=== PATIENT | male | born 1975 | race Caucasian/White ===

== ENCOUNTER 2025-04-09 10:30 | Outpatient (CLI) | payer BC, SELFPAY ==
--- NOTE | 2025-04-09 10:33 | CT_ITS ---
APPROVED REPORT [employer] Supervisor: CLINICAL INDICATION Chest Pain TECHNIQUE Image Acquisition: A 128 slice MDCT scanner ([employer]) was used for data acquisition. A noncontrast coronary calcium scan was performed. A CT attenuation threshold of 130 Hounsfield units (HU) was used for the detection of calcium in contiguous voxels of 1 sq mm in area to be counted as individual lesions. Bolus tracking in the ascending aorta with a threshold of 180 HU was performed. Immediately afterwards, ECG synchronized cardiac CT was then performed from the cardiac base to apex using retrospective gating with ECG tube current modulation. A total of 85 mL of Isovue 370 mg/mL contrast medium was administered at 5 mL/sec followed by a saline flush using a biphasic injection protocol. A tube voltage of 120 KVp was used. The average heart rate at the time of acquisition was 62 bpm and regular. Image Reconstruction Transaxial images were reconstructed at 0.67 mm slide thickness. Data was reviewed interactively on an advanced workstation capable of 2 and 3-dimensional displays in all conventional reconstruction formats, including multiplanar reformations, maximum intensity projections, curved multiplanar reformations, and volume rendered reconstructions. When applicable, selected routine images describing the relevant coronary anatomy and pathology were saved and sent to PACS. Complications None Technical Quality Overall image quality was good. Coronary artery opacification was adequate. Total DLP (Dose-Length Product) is 1578.1 mGy-cm. The reported value represents the total of one or more individual components during the CT acquisition of this date and at this time, and as such, the same value may appear in more than one CT report depending on the interpreting/reporting physicians. COMPARISON None FINDINGS CT Coronary Calcium Scoring LMA (Left Main Artery) = 0 LAD (Left Anterior Descending) = 0 LCX (Left Coronary Circumflex) = 0 RCA (Right Coronary Artery) = 0 Total Calcium Score = 0 using the AJ-130 method. The interpretation of the calcium heart score is based on the following continuum*: 0 = no calcified plaque detected (risk of coronary artery disease is very low ??? less than 5%) 1-10 = calcium detected in extremely minimal levels (risk of coronary diseases is still low ??? less than 10%) 11-100 = mild levels of plaque detected with certainty (mild or minimal narrowing of heart arteries is likely) 101-400 = definite,at least moderate levels of plaque detected (relatively high risk of a heart attack within 3-5 years) >401-999 = extensive levels of plaque detected (high risk of heart attack, high levels of vascular disease are present, high likelihood of at least one significant coronary narrowing) *The calcium heart score quantifies the burden of coronary calcification/plaque in the coronary arteries. The calcium heart score is not able to evaluate the presence or burden of non-calcified (i.e. soft) plaque. There is no identifiable calcification in the aortic valve, mitral annulus or mitral valve, pericardium, or myocardium. Coronary CT Angiography The coronary arterial system is right dominant. Quantitative Stenosis Grading: Left Main (LM): The left main originates normally from the left sinus of Valsalva. The LM bifurcates into the left anterior descending artery and left circumflex artery. The LM is patent with no evidence of atherosclerosis. Left Anterior Descending (LAD) and Diagonal Branches: The LAD gives off 3 diagonal branch(es). The LAD and its branches are patent with no evidence of atherosclerosis. There is no evidence of LAD-myocardial bridge. Left Circumflex (LCX) and Obtuse Marginals (OM): The LCX gives off 1 Obtuse Marginal (OM) branch(es). The LCX and its branches are patent with no evidence of atherosclerosis. Right Coronary Artery (RCA): The RCA originates normally from the right sinus of Valsalva. The RCA gives off a posterior descending artery (PDA) and posterolateral (PL) branches. The RCA and its branches are patent with no evidence of atherosclerosis. Non-Coronary Cardiac Findings: Analysis of the left ventricular (LV) structure and function was performed after 3-D reconstruction of the LV from axial images, with user-corrected automatic contouring for assessment of LV volumes and user-defined reconstruction from oblique planes for measurement of 3-D cardiac structure and function. -The left ventricle systolic function is normal. -There is incomplete opacification of the distal left atrial appendage. This likely represents artifact due early imaging acquisition, but this study cannot rule out filling defect in the distal BLANCA. Two right pulmonary veins and two left pulmonary veins drain normally into the left atrium. -No pericardial thickening or calcification. -Central and branch pulmonary arteries in the [id number] are unremarkable. -Thoracic aorta within the visualized thoracic aortic-branches in the [id number] is unremarkable. Extracardiac Structures No significant extra-cardiac findings. Note, however, that this study is focused on the cardiac findings. IMPRESSION -Absence of coronary calcification with an Agatston score = 0 using the AJ-130 method. -No evidence of significant flow-limiting atherosclerosis of the coronary arteries. -No evidence of coronary anomalies or myocardial bridges. -CAD-RADS 0. Management recommendations per ACC/AHA guidelines*, as clinically appropriate. *Recommendations: CAD RADS 0: Reassurance. Consider non-atherosclerotic causes of chest pain. CAD RADS 1: Consider non-atherosclerotic causes of chest pain. Consider preventive therapy and risk factor modification. CAD RADS 2: Consider non-atherosclerotic causes of chest pain. Consider preventive therapy and risk factor modification, particularly for patients with nonobstructive plaque in multiple segments. CAD RADS 3: Consider further functional testing. Consider symptom-guided anti-ischemic and preventive pharmacotherapy as well as risk factor modification per published guideline statements. CAD RADS 4A: Consider further functional testing or invasive coronary angiography with revascularization per published guideline statements. Consider symptom-guided anti-ischemic and preventive pharmacotherapy as well as risk factor modification per published guideline statements. CAD RADS 4B: Invasive coronary angiography recommended with revascularization per published guideline statements. Consider symptom-guided anti-ischemic and preventive pharmacotherapy as well as risk factor modification per published guideline statements. CAD RADS 5: Consider invasive angiography and/or viability assessment with revascularization per published guideline statements. Consider symptom-guided anti-ischemic and preventive pharmacotherapy as well as risk factor modification per published guideline statements. CRITICAL RESULT None COMMUNICATION Per this written report The coronary and cardiac findings of this CCTA were reviewed, reported, and signed by Talib Feldman MD (Social Media Designer) Conclusion Electronically signed by : Irma Feldman MD 04/09/2025 13:49:30
--- OUTSIDE RECORDS SUMMARY | 2025-04-09 10:33 | XMS_ITS | Data Portability ---
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 Alternate ice/heat Patient advised to rest initially and then slowly increase activity level. Monitor changes in symptoms such as numbness, tingling or weakness in legs, changes in bowel or bladder habits or worsening back pain. Proper ergonomics discussed. Patient instructed to follow up with worsening symptoms or concerns Patient was advised on risk and benefits of the use of oral steriods. Patient is wanting steriods to help with symptoms at this time. Patient was advised that if symptoms worsen at all to seek care [email or web address] Not available 01/24/2024 09:30:06 10/07/2024 10/07/2024 New patient who presents to establish care. Prior to this he has had limited interaction with the healthcare system. He has currently not on any medication. [email or web address] Not available 10/07/2024 14:33:46 Plan of Treatment Reminders Order Date Submit Date Provider Last Modified By Organization Details Last Modified Time Details Appointments OV EST 15 2024 09:45A Leonle Mendoza MD Not available Not available Not available Lab TSH, serum or plasma 2023 024 [facility] (Laboratory), [address] , [place], [address], 10/07/2024 17:34:20 lipid panel, serum 2023 [facility] (Laboratory), [address] , [place], [address], 10/07/2024 17:34:24 CMP, serum or plasma 2023 [facility] (Laboratory), [address] , [place], [address], 10/07/2024 17:34:22 CBC w/ auto diff 2023 [facility] (Laboratory), [address] , [place], [address], 10/07/2024 17:18:11 noninvasi ve colorecta l cancer DNA + occult blood screening , QL, stool 2023 [email or web address] [facility] (Cologuard Orders Only), [address], [address], [place], [address], 11/04/2024 08:32:17 hemoglobi n A1c + average glucose, QN, blood [email or web address] (Laboratory), [address] [place], [address], 10/14/2024 08:20:42 urinalysi s, dipstick 2023 [email or web address] [facility], [address] [facility], [address], [place], [address], 01/24/2024 09:29:43 Referral cardiolog ist referral 2023 024 philip Mendoza MD, [address] , [address], [place], [address], 11/04/2024 08:31:58 Procedures None recorded. Surgeries None recorded. Imaging XR, chest, 2 view 2023 [facility] (Scheduling), [address] , [place], [address], 10/07/2024 19:14:26 Medication Orders cyclobenz aprine 5 mg tablet 2023 [id number], [address] [place] [address], [id number], 10/07/2024 14:11:54 ketorolac 60 mg/2 mL intramusc ular solution 2023 [email or web address] Not available 10/07/2024 14:11:43 Celestone Soluspan 6 mg/mL suspensio n for injection 2023 [email or web address] Not available 10/07/2024 14:11:37 prednison e 10 mg tablets in a dose pack 2023 [facility] #[id number], [address], [place], [place], [id number], 10/07/2024 14:11:56 Patient TargetsNo targets recorded. Patient InstructionsNo instructions recorded. 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 Referring Physician: Osvaldo Pace, Family Medicine, Encounter Date: 10/07/2024 Results Created Date Observation Date Name Description Value Unit Range Abnormal Flag Note LastModifiedBy Organization Detail LastModifiedTime 01/24/2001/24/2024 urina lysis , dipst ick Leukocytes (reference range) negati ve Not Available [facility] [address], [place], [address], 01/24/2024 09:18:04 01/24/20 24 01/24/2024 urina lysis , dipst ick Nitrite (reference range:) negati ve Not Available [facility] [address], [place], [address], 01/24/2024 09:18:04 01/24/20 24 01/24/2024 urina lysis , dipst ick Urobilinogen (reference range) 4 Not Available [facility] [address], [place], [address], 01/24/2024 09:18:04 01/24/20 24 01/24/2024 urina lysis , dipst ick Protein (reference range) negati ve Not Available [facility] [address], [place], [address], 01/24/2024 09:18:04 01/24/20 24 01/24/2024 urina lysis , dipst ick pH (reference range 5-8.5) 6.0 Not Available [facility] [address], [place], [address], 01/24/2024 09:18:04 01/24/20 24 01/24/2024 urina lysis , dipst ick Blood (reference range:) negati ve Not Available [facility] [address], [place], [address], 01/24/2024 09:18:04 01/24/20 24 01/24/2024 urina lysis , dipst ick Specific Jensen (reference range) 1.025 Not Available [facility] [address] [facility] [address], [place], [address], 01/24/2024 09:18:04 01/24/20 24 01/24/2024 urina lysis , dipst ick Ketone (reference range) negati ve Not Available [facility] [address], [place], [address], 01/24/2024 09:18:04 01/24/20 24 01/24/2024 urina lysis , dipst ick Bilirubin (reference range) negati ve Not Available [facility] [address] [facility] [address], [place], [address], 01/24/2024 09:18:04 01/24/20 24 01/24/2024 urina lysis , dipst ick Glucose (reference range) negati ve Not Available [facility] [address] [facility] [address], [place], [address], 01/24/2024 09:18:04 10/07/20 24 10/07/2024 HEMOG LOBIN A1C glycosylated hemoglobin A1C 5.6 % 4.5-6. 2 Not Available [facility] (Lab Registration) [address], [place], [address], 10/07/2024 17:16:08 10/07/20 24 10/07/2024 HEMOG LOBIN A1C estimated average glucose 114 mg/dL 82-131 Not Available [facility] (Lab Registration) [address] , [place], [address], 10/07/2024 17:16:08 10/07/20 24 10/07/2024 HEMOG LOBIN A1C note Unles s other tucker noted testi ng perfo rmed at: [facility] [address] [place] [address] [phone] Robin eng MD CLIA: [id number] Not Available [facility] (Lab Registration) [address] [place], [address], 10/07/2024 17:16:08 10/07/20 24 10/07/2024 CBC AUTO W DIFF WBC 7.1 10 4.5-11 .5 Not Available [facility] (Lab Registration) [address] [place], [address], 10/07/2024 17:18:11 10/07/20 24 10/07/2024 CBC AUTO W DIFF RBC 5.41 10 4.25-5 .57 Not Available [facility] (Lab Registration) [address] [place], [address], 10/07/2024 17:18:11 10/07/20 24 10/07/2024 CBC AUTO W DIFF HGB 16.2 g/dL 13.5-1 7.2 Not Available [facility] (Lab Registration) [address] [place], [address], 10/07/2024 17:18:11 10/07/20 24 10/07/2024 CBC AUTO W DIFF HCT 47.4 % 42.0-5 2.0 Not Available [facility] (Lab Registration) [address] [place], [address], 10/07/2024 17:18:11 10/07/20 24 10/07/2024 CBC AUTO W DIFF MCV 87.6 fL 80-95 Not Available [facility] (Lab Registration) [address] [place], [address], 10/07/2024 17:18:11 10/07/20 24 10/07/2024 CBC AUTO W DIFF MCH 29.9 pg 27.0-3 4.0 Not Available [facility] (Lab Registration) [address] [place], [address], 10/07/2024 17:18:11 10/07/20 24 10/07/2024 CBC AUTO W DIFF MCHC 34.2 g/dL 32.0-3 6.0 Not Available [facility] (Lab Registration) [address] [place], [address], 10/07/2024 17:18:11 10/07/20 24 10/07/2024 CBC AUTO W DIFF platelet count 236 10 150-45 0 Not Available [facility] (Lab Registration) [address] [place], [address], 10/07/2024 17:18:11 10/07/20 24 10/07/2024 CBC AUTO W DIFF RDW 12.7 % 12.3-1 5.1 Not Available [facility] (Lab Registration) [address] [place], [address], 10/07/2024 17:18:11 10/07/20 24 10/07/2024 CBC AUTO W DIFF MPV 10.0 fL 7.4-10 .4 Not Available [facility] (Lab Registration) [address], [place], [address], 10/07/2024 17:18:11 10/07/20 24 10/07/2024 CBC AUTO W DIFF granulocyte% 70.1 % 40-75 Not Available [facility] (Lab Registration) [address] [place], [address], 10/07/2024 17:18:11 10/07/20 24 10/07/2024 CBC AUTO W DIFF lymphocyte% 15.2 % 15-57 Not Available [facility] (Lab Registration) [address] [place], [address], 10/07/2024 17:18:11 10/07/20 24 10/07/2024 CBC AUTO W DIFF monocyte% 13.8 % 4.0-12 .0 high Not Available [facility] (Lab Registration) [address] [place], [address], 10/07/2024 17:18:11 10/07/20 24 10/07/2024 CBC AUTO W DIFF eosinophil% 0.4 % 0.0-4. 0 Not Available [facility] (Lab Registration) [address] [place], [address], 10/07/2024 17:18:11 10/07/20 24 10/07/2024 CBC AUTO W DIFF basophil% 0.4 % 0.0-1. 0 Not Available [facility] (Lab Registration) [address] [place], [address], 10/07/2024 17:18:11 10/07/20 24 10/07/2024 CBC AUTO W DIFF immature granulocytes % 0.1 % 0.0-0. 8 Not Available [facility] (Lab Registration) [address] [place], [address], 10/07/2024 17:18:11 10/07/20 24 10/07/2024 CBC AUTO W DIFF granulocyte# 4.96 10 Not Available [facility] (Lab Registration) [address] [place], [address], 10/07/2024 17:18:11 10/07/20 24 10/07/2024 CBC AUTO W DIFF lymphocyte# 1.08 10 Not Available [facility] (Lab Registration) [address] [place], [address], 10/07/2024 17:18:11 10/07/20 24 10/07/2024 CBC AUTO W DIFF monocyte# 0.98 10 Not Available [facility] (Lab Registration) [address] [place], [address], 10/07/2024 17:18:11 10/07/20 24 10/07/2024 CBC AUTO W DIFF eosinophil# 0.03 10 Not Available [facility] (Lab Registration) [address] [place], [address], 10/07/2024 17:18:11 10/07/20 24 10/07/2024 CBC AUTO W DIFF basophil# 0.03 10 Not Available [facility] (Lab Registration) [address] [place], [address], 10/07/2024 17:18:11 10/07/20 24 10/07/2024 CBC AUTO W DIFF immature granulocytes # 0.01 10 Not Available [facility] (Lab Registration) [address] [place], [address], 10/07/2024 17:18:11 10/07/20 24 10/07/2024 CBC AUTO W DIFF manual differential NO Not Available [facility] (Lab Registration) [address] [place], [address], 10/07/2024 17:18:11 10/07/20 24 10/07/2024 CBC AUTO W DIFF note Unles s other tucker noted testi ng perfo rmed at: [facility] [address] [place] [address] [phone] Robin eng MD CLIA: [id number] Not Available [facility] (Lab Registration) [address] [place], [address], 10/07/2024 17:18:11 10/07/20 24 10/07/2024 THYRO ID STIMU LATIN G HORMO NE thyroid stimulating hormone 1.02 mIU/m L 0.34-4 .80 Not Available [facility] (Lab Registration) [address] [place], [address], 10/07/2024 17:34:20 10/07/20 24 10/07/2024 THYRO ID STIMU LATIN G HORMO NE note Unles s other tucker noted testi ng perfo rmed at: [facility] [address] [place] [address] [phone] Robin eng MD CLIA: [id number] Not Available [facility] (Lab Registration) [address] [place], [address], 10/07/2024 17:34:20 10/07/20 24 10/07/2024 COMP METAB OLIC PANEL sodium 141 mmol/ L 136-14 5 Not Available [facility] (Lab Registration) [address] [place], [address], 10/07/2024 17:34:22 10/07/20 24 10/07/2024 COMP METAB OLIC PANEL potassium 4.6 mmol/ L 3.5-5. 1 Not Available [facility] (Lab Registration) [address] [place], [address], 10/07/2024 17:34:22 10/07/20 24 10/07/2024 COMP METAB OLIC PANEL chloride 102 mmol/ L 98-107 Not Available [facility] (Lab Registration) [address] [place], [address], 10/07/2024 17:34:22 10/07/20 24 10/07/2024 COMP METAB OLIC PANEL carbon dioxide 32 mmol/ L 21-32 Not Available [facility] (Lab Registration) [address], [place], [address], 10/07/2024 17:34:22 10/07/20 24 10/07/2024 COMP METAB OLIC PANEL anion gap 7.0 Not Available [facility] (Lab Registration) [address] [place], [address], 10/07/2024 17:34:22 10/07/20 24 10/07/2024 COMP METAB OLIC PANEL glucose 78 mg/dL 70-110 Not Available [facility] (Lab Registration) [address] [place], [address], 10/07/2024 17:34:22 10/07/20 24 10/07/2024 COMP METAB OLIC PANEL blood urea nitrogen 9 mg/dL 7-18 Not Available [facility] (Lab Registration) [address] [place], [address], 10/07/2024 17:34:22 10/07/20 24 10/07/2024 COMP METAB OLIC PANEL creatinine 1.2 mg/dL 0.8-1. 3 Not Available [facility] (Lab Registration) [address] [place], [address], 10/07/2024 17:34:22 10/07/20 24 10/07/2024 COMP METAB OLIC PANEL BUN/creatini ne ratio 7.5 9-21 low Not Available [facility] (Lab Registration) [address] [place], [address], 10/07/2024 17:34:22 10/07/20 24 10/07/2024 COMP METAB OLIC PANEL estimated glom filtration rate 75 mL/mi n >60- GFR LIMIT ATION : The eGFR equat ion CKD-E PI 2020 is not appli cable for pedia tric patie nts or great er than 90 years of age. The follo wing condi tions may alter the GFR resul t: extre mes in body size, malnu triti on or obesi ty, skele indy muscl e disea se, parap legia or quadr ipleg ia, veget tracy diet or rapid ly echeverria ing kiney funct ion. Not Available [facility] (Lab Registration) [address], [place], [address], 10/07/2024 17:34:22 10/07/20 24 10/07/2024 COMP METAB OLIC PANEL total protein 6.9 g/dL 6.4-8. 2 Not Available [facility] (Lab Registration) [address] [place], [address], 10/07/2024 17:34:22 10/07/20 24 10/07/2024 COMP METAB OLIC PANEL albumin 3.8 g/dL 3.4-5. 0 Not Available [facility] (Lab Registration) [address], [place], [address], 10/07/2024 17:34:22 10/07/20 24 10/07/2024 COMP METAB OLIC PANEL calcium 9.6 mg/dL 8.5-10 .1 Not Available [facility] (Lab Registration) [address] [place], [address], 10/07/2024 17:34:22 10/07/20 24 10/07/2024 COMP METAB OLIC PANEL corrected calcium 9.8 mg/dL 8.5-10 .1 Not Available [facility] (Lab Registration) [address] [place], [address], 10/07/2024 17:34:22 10/07/20 24 10/07/2024 COMP METAB OLIC PANEL bilirubin total 0.5 mg/dL 0.4-1. 5 Not Available [facility] (Lab Registration) [address] [place], [address], 10/07/2024 17:34:22 10/07/20 24 10/07/2024 COMP METAB OLIC PANEL AST (SGOT) 15 U/L 15-37 Not Available [facility] (Lab Registration) [address] [place], [address], 10/07/2024 17:34:22 10/07/20 24 10/07/2024 COMP METAB OLIC PANEL ALT (SGPT) 37 U/L 12-78 Not Available [facility] (Lab Registration) [address] [place], [address], 10/07/2024 17:34:22 10/07/20 24 10/07/2024 COMP METAB OLIC PANEL alk phosphatase 106 U/L 50-170 Not Available [facility] (Lab Registration) [address] [place], [address], 10/07/2024 17:34:22 10/07/20 24 10/07/2024 COMP METAB OLIC PANEL note Unles s other tucker noted testi ng perfo rmed at: [facility] [address] [place] [address] [phone] Robin eng MD CLIA: [id number] Not Available [facility] (Lab Registration) [address], [place], [address], 10/07/2024 17:34:22 10/07/20 24 10/07/2024 LIPID PANEL triglyceride 164 mg/dL 20-200 The Natio nal Stephanie stero l Educa tion Progr am (NCEP ) has set the follo wing guide lines for Fasti ng Trigl yceri stephanie: MAURICIO L: <150 mg/dL BORDE RLINE HIGH: 150 - 199 mg/dL HIGH: 200 - 499 mg/dL VERY HIGH: > or =500 mg/dL Not Available [facility] (Lab Registration) [address] [place], [address], 10/07/2024 17:34:24 10/07/20 24 10/07/2024 LIPID PANEL cholesterol 249 mg/dL 0-200 high The Natio nal Stephanie stero l Educa tion Progr am ([facility] ) has set the follo wing guide lines for Fasti ng Stephanie stero l: LEWIS ABLE: <200 mg/dL BORDE RLINE HIGH: 200 - 239 mg/dL HIGH: > or =240 mg/dL Not Available [facility] (Lab Registration) [address], [place], [address], 10/07/2024 17:34:24 10/07/20 24 10/07/2024 LIPID PANEL HDL cholesterol 50 mg/dL 60- low The Natio nal Stephanie stero l Educa tion Progr am (RIEP ) has set the follo wing guide lines for Fasti ng HDL Stephanie stero l: LOW HDL: <40 mg/dL MAURICIO L: 40 - 60 mg/dL LEWIS ABLE: >60 mg/dL Not Available [facility] (Lab Registration) [address], [place], [address], 10/07/2024 17:34:24 10/07/20 24 10/07/2024 LIPID PANEL LDL calculated 166 mg/dL 100- The Natio nal Stephanie stero l Educa tion Progr am ([facility] ) has set the follo wing guide lines for Fasti ng LDL Stephanie stero l: OPTIM AL: < 100 mg/dL LOW RISK: 100 - 129 mg/dL BORDE RLINE HIGH: 130 - 159 mg/dL HIGH: 160 - 189 mg/dL VERY HIGH: > or = 190 mg/dL Not Available [facility] (Lab Registration) [address] [place], [address], 10/07/2024 17:34:24 10/07/20 24 10/07/2024 LIPID PANEL chol/HDL ratio 5 -5 Not Available [facility] (Lab Registration) [address] [place], [address], 10/07/2024 17:34:24 10/07/20 24 10/07/2024 LIPID PANEL note Unles s other tucker noted testi ng perfo rmed at: [facility] [address] [place] [address] [phone] Robin eng MD CLIA: [id number] Not Available [facility] (Lab Registration) [address] [place], [address], 10/07/2024 17:34:24 10/07/20 24 10/07/2024 XR, chest , 2 view [facility] [address] [facility] [place] [address] Phone: Fax: Name: UGO VELA Exam Date: 2023 : 1974 Age 49 years Gender : M Access ion: [id number] Physic francheska: VIR[place]IA PACE NDE Facili ty: [facility] Facili ty HSV: Outpat ient Exam: CHEST PA ^ LAT Chest X Ray: 2 Views includ ing PA and latera l chest CLINIC AL INDICA TION: Male, 49 years old. cough COMPAR DEMETRIS: None. Findin gs: Trache a and medias tinum are midlin e. Cardia c silhou ette is within normal limits . There is no focal lung consol idatio n or effusi on. Impres dasia: Lungs are clear. Electr onical ly signed by: Luis Sheriff MD 2023 07:09 PM EST RP Workst ation: [id number] Dictat ed By: LUIS SHERIFF Transc ribed By: Transc ribed On: 2023 3:21 PM Electr onical ly signed by: LUIS SHERIFF Y 2023 Thank you for referr ing MIRIAN UGO to [facility]. Legall y authen ticate d by SHEILA Javier MD 2023-10 15:21: 46 CC'ed Logic: Orderi ng Provid er: KATELYNN COLEMAN NDE CC Provid er: KATELYNN WILHELM Attend ing Provid er: KATELYNN WILHELM Referr ing Provid er: KATELYNN WILHELM Admitt ing Provid er: KATELYNN WILHELM [facility] (Radiology) [address] [place] [address] [place], [address], 10/08/2024 08:24:46 04/02/20 25 03/29/2025 XR, chest No observ ation record ed. [email or web address] Not Available 2024 09:30:15 04/05/20 25 03/29/2025 elect rocar diogr am No observ ation record ed. [email or web address] Not Available 2024 09:53:49 04/05/20 25 04/06/2025 elect rocar diogr am No observ ation record ed. [address], [place], [address], 04/06/2025 08:08:31 04/06/20 25 04/06/2025 elect rocar diogr am No observ ation record ed. [address], [place], [address], 04/06/2025 08:08:21 Result Notes Documentation Provider Name and Address Organization Details Recorded Time Xr, Chest, 2 View : [address] [place] [address] Name: UGO VELA Exam Date: 10/07/2024 : 1975 Age 49 years Gender: M Physician: OSVALDO PACE Facility: [facility] Facility HSV: Outpatient Exam: CHEST PA ^ LAT Chest X Ray: 2 Views including PA and lateral chest CLINICAL INDICATION: Male, 49 years old. cough COMPARISON: None. Findings: Trachea and mediastinum are midline. Cardiac silhouette is within normal limits. There is no focal lung consolidation or effusion. Impression: Lungs are clear. Electronically signed by: Morena Sheriff MD 10/07/2024 07:09 PM [facility] Dictated By: MORENA SHERIFF Transcribed By: Transcribed On: 10/07/2024 3:21 PM Electronically signed by: MORENA SHERIFF 10/07/2024 Thank you for referring UGO VELA to [facility]. Legally authenticated by SHEILA BERG MD 2024-10-07 15:21:44 CC'ed Logic: Ordering Provider: KATELYNN ZIMMERMAN CC Provider: KATELYNN ZIMMERMAN Attending Provider: KATELYNN ZIMMERMAN Referring Provider: KATELYNN ZIMMERMAN Admitting Provider: KATELYNN ZIMMERMAN Not Available [facility] 10/08/2024 08:24:46 Problems No Known Problems Medical Equipment None Reported. Allergies No known drug allergies Medications Name Sig Start Date Stop Date Status Note LastModified by Organization Details LastModified Time Celestone Soluspan 6 mg/mL suspension for injection Take 9 mg by injection route. 10/07 completed Not Available Not Available Not Available prednisone 10 mg tablets in a dose pack FOLLOW PACKAGE DIRECTION S 10/07 completed Not Available Not Available Not Available metoprolol tartrate 50 mg tablet Take 1 tablet twice a day by oral route. 2024 active Not Available Not Available Not Avai lable nitroglycer in 0.[address] 1 tablet by sublingua l route. 2024 active Not Available Not Available Not Avai lable ketorolac 60 mg/2 mL intramuscul ar solution Inject 1 mL every 6 hours by intramusc ular route. 10/07 completed Not Available Not Available Not Available cyclobenzap rine 5 mg tablet TAKE 1 TABLET BY MOUTH THREE TIMES DAILY FOR 4 DAYS NEEDED 10/07 completed Not Available Not Available Not Available Vitals Date Recorded Body weight Body temperature Heart rate Systolic blood pressure Diastolic blood pressure Provider Name and Address Organization Details Last Updated DateTime 01/24/2024 13080.6 6 g 97.8 [degF] 68 /min 138 mm[Hg] 86 mm[Hg] L[facility] [place] [facility] [place] [facility] [place] 09:10:30 Date Recorded Body height Body mass index (BMI) Body weight Oxygen saturation Oxygen saturation in Arterial blood by Pulse oximetry Heart rate Systolic blood pressure Diastolic blood pressure Provider Name and Address Organization Details Last Updated DateTime 5 175.26 cm 29.3 kg/m2 84614.0 9 g 97 % 97 % 85 /min 129 mm[Hg] 88 mm[Hg] Angely Abreu [facility] [place] 5 10:03:38 Date Recorded Body height Body mass index (BMI) Body weight Body temperature Oxygen saturation Oxygen saturation in Arterial blood by Pulse oximetry Heart rate Respiratory rate Systolic blood pressure Diastolic blood pressure Provider Name and Address Organization Details Last Updated DateTime 4 175.26 cm 30.4 kg/m2 67519.0 3 g 98.4 [degF] 97 % 97 % 93 /min 16 /min 142 mm[Hg] 92 mm[Hg] Liana Sun [facility] [place] 4 14:11:24 Social History Question Answer Notes LastModified by Organizat ion Details LastModified Time Tobacco Smoking Status Current Every Day Smoker Liana Sun [facility] [place] 10/07/2024 14:13:18 Do You Have An Advance Directive? No Information n ot available 10/07/2024 Are You Blind Or Do You Have Difficulty Seeing? No Information n ot available 10/07/2024 What Is Your Level Of Caffeine Consumption? Moderate Information not available 10/07/2024 In The 14 Days Before Symptom Onset, Have You Had Close Contact With A Laboratory-confirm ed COVID-19 While That Case Was Ill? No Information n ot available 10/07/2024 In The 14 Days Before Symptom Onset, Have You Had Close Contact With A Person Who Is Under Investigation For COVID-19 While That Person Was Ill? No Information not available 10/07/2024 Have You Been To An Area Known To Be High Risk For COVID-19? No Information not available 10/07/2024 Are You Deaf Or Do You Have Serious Difficulty Hearing? No Information not available 10/07/2024 What Type Of Diet Are You Following? REGULAR Information n ot available 10/07/2024 Have You Processed Blood Or Body Fluids From An Ebola Virus Disease Patient Without Appropriate PPE? No Information not available 10/07/2024 Do You Reside In Or Have You Traveled To An Area Where Ebola Virus Transmission Is Active? No Information not available 10/07/2024 Have There Been Any Changes To Your Family Or Social Situation? No Information no t available 10/07/2024 What Is The Fluoride Status Of Your Home? Unknown Information not available 10/07/2024 Are There Any Guns Present In Your Home? No Information not available 10/07/2024 Have You Recently Or Are You Planning To Travel To An Area With Zika Virus? No Information not available 10/07/2024 Do You Use Insect Repellent Routinely? Yes Information not available 10/07/2024 Do You Feel Safe At Home? Yes Information not available 10/07/2024 Do You Have A Medical Power Of [place] Gazer? No Information not available 10/07/2024 What Is Your Current Pack Years? 30ormorepacky ears Information not available 10/07/2024 Do You Have Any Pets? Yes Information not available 10/07/2024 What Is Your Relationship Status? Information not available 10/07/2024 Do You Use Your Seat Belt Or Car Seat Routinely? Yes Information not available 10/07/2024 Do You Have Smoke And Carbon Monoxide Detectors In Your Home? Yes Information not available 10/07/2024 Are You Passively Exposed To Smoke? Yes Information no t available 10/07/2024 How Much Tobacco Do You Smoke? 1 PPD Information not available 10/07/2024 Do You Use Sunscreen Routinely? Yes Information not available 10/07/2024 Do You Have Difficulty Walking Or Climbing Stairs? No Information not available 10/07/2024 Are You Currently In School? No Information not available 10/07/2024 Sex: Unknown Functional Status Question Answer Note LastModified by Organizat ion Details LastModified Time Do you use any illicit or recreational drugs? No Information not available 10/07/2024 Do you or have you ever used any other forms of tobacco or nicotine? No Information not available 10/07/2024 What is your level of alcohol consumption? Moderate admits to drinking 1-2 beers daily Information not available 10/07/2024 Are you currently employed? Yes Information not available 10/07/2024 Do you have transportation difficulties? No Information not available 10/07/2024 Are you able to walk? YESWOREST Information not available 10/07/2024 Do you have difficulty doing errands alone? No Information not available 10/07/2024 Are you able to care for yourself? Yes Information n ot available 10/07/2024 Do you have difficulty dressing or bathing? No Information not available 10/07/2024 What is your exercise level? Moderate Information not available 10/07/2024 Mental Status Question Answer Note LastModified by Organizat ion Details LastModified Time Do you feel stressed (tense, restless, nervous, or anxious, or unable to sleep at night)? [id number] Information not available 10/07/2024 Do you have difficulty concentrating, remembering or making decisions? No Information no t available 10/07/2024 Family History Relationship Description Onset Age of this Age Resolved Age Notes LastModified by Organization Details LastModified Time Mother Chronic obstructive pulmonary disease [email or web address] Not available 2023 15:40:04 Father Myocardial infarction [email or web address] Not available 10/07 14:12:29 Paternal Grandfather Myocardial infarction tpardini Not available 10/07 14:12:29 Medical History No medical history recorded. Immunizations Vaccine Type Date Status Note Provider Nam e and Address Organization Details Recorded Time COVID-19, mRNA, LNP-S, PF, 100 mcg/0.5mL dose or 50 mcg/0.25mL dose 1 completed JOSEPH Love [facility] & [place] 09/04/2024 15:39:07 COVID-19, mRNA, LNP-S, PF, 100 mcg/0.5mL dose or 50 mcg/0.25mL dose 1 completed JOSEPH Love [facility] & [place] 09/04/2024 15:39:07 Tdap 1 completed Sanna ernst, JOSEPH - [facility] - [place] & [place] 09/04/2024 15:39:07 Td (adult), 2 Lf tetanus toxoid, preservative free, adsorbed 6 completed JOSEPH Love - [facility] - [place] & [place] 09/04/2024 15:39:07 Past Encounters Encounter ID Performer Location Encounter Start Date Encounter Closed Date Diagnosis/Indication Diagnosis SNOMED-CT Code Diagnosis ICD10 Code Diagnosis Note [id number] Kaz Light MD [address],[facility] [address] [place] [address] 01/24/2024 09:00:16 01/24/2024 09:57:53 Low back pain 962529344 M54.50 Spasm of back muscles 20 5397440 M62.321 [id number] Osvaldo Pace MD [facility] [address] [facility] [place] [id number] 10/07/2024 13:21:55 10/07/2024 14:35:27 Screening for malignant neoplasm of colon 338432013 Z12.11 Patient ne w to facility [id number] 69797 Z76.89 [facility] Diabetes m ellitus screening 901387243 Z13.1 will obtain an A1c. Hyperlipidemia 81753875 E78.5 Will check patient's cholestero l profile Thyroid di sorder screening 041604102 Z13.29 will rule out thyroid disorder by ordering a TSH. Anemia screening 1973856 07 Z13.0 Cough 92257858 R05.9 Patient reports a month history of a cough. Will get a chest x-ray. Chest pain 92881762 R07. 9 patient mentioned that he has chest pain that resolved with rest. Will refer him to Cardiology for a workup including echocardio gram, stress test ATC I have told him if his pain worsens to go to the emergency department . [id number] Herrera Mendoza MD [address] [place] [id number] 04/05/2025 09:55:55 04/05/2025 10:55:19 Precordial pain 68788897 R07.2 Near syncope 584926895 R 55 Hyperlipid emia screening 138642479 Z13.220 Health Concerns Section Related Observation LastModified by Organization Detai ls LastModified Time None Recorded Concern Status LastModified by Organization Details LastModified Time None Recorded Advance Directives Directive N: Payers Insurance Date Sequence Insurance Name Policy Number Policy Hollingsworth Covered Member ID Hollingsworth Member ID Guarantor Name 04/05/2025 1 [place] [id number] 1 Ugo Vela [id number] Ugo Vela 01/24/2024 1 [employer] (POS) Ugo Mirian [id number] Ugo Mirian Notes Date Note Type Note Provider Name and Address Organization Details Recorded Time 01/24/2024 text/html Back PainReporte d bypatient.Location: lumbar left Quality:dull; tender; tightness Severity:worsening; pain level 6/10 Duration:1 days Timing:acute Context:working in garden Alleviating Factors:none Aggravating Factors:twisting; flexing back; pulling; reaching Associated Symptoms:no fever; no weakness; no numbness; no tingling; no shortness of breath; no unintentional weight loss; no chills; no night sweats; no gait instability; no recent increase in stress; no bowel dysfunction; no bladder dysfunction Previous Injury:no prior back injury; no prior malignancy Prior Imaging:none Raissa Light APRN [address] [place], [address], [facility] 01/24/2024 09:37:25 10/07/2024 text/html Patient presents today to establish care. According to him he does not have any medical issues. His blood pressure is somewhat elevated however has not been diagnosed with hypertension. He also complains of an acute onset cough. patient also reports intermittent chest pain that gets resolved with rest. Osvaldo Pace MD [address] [place] [address], [phone], [facility] & [place] 10/07/2024 14:34:43
[2025-04-09 10:50] VITALS: BMI 27.1
[2025-04-09 11:03] VITALS: BP 112/72; PULSE 63; RESP 16; O2SAT 99
[2025-04-09 11:10] LABS: Chloride 107 mmol/L (98-107); Potassium 4.2 mmoL/L (3.5-5.1); Sodium 139 mmol/L (136-145)
[2025-04-09 11:13] LABS: Blood Urea Nitrogen 15 mg/dl (9-20); Creatinine Clearance Estimated 117 mL/min (50-200); Estimated Glomerular Filt Rate 80 ml/min (>60); GFR (African American) 97 ML/MIN (>60)
[2025-04-09 11:14] LABS: Anion Gap 5.2 mEq/L (5-15); Calcium 9.1 mg/dl (8.4-10.2); Carbon Dioxide 31 mmol/L (22.0-30.0); Glucose 103 mg/dl (74-100)
[2025-04-09 11:33] VITALS: BP 130/87; PULSE 59; RESP 16; O2SAT 97
[2025-04-09] MEDS: NITROGLYCERIN 0.4MG SL TABLET SL (11:33)
[2025-04-09 11:36] VITALS: BP 107/61; PULSE 51; RESP 16; O2SAT 98
[2025-04-09 11:39] VITALS: BP 109/65; PULSE 57; RESP 16; O2SAT 97
[2025-04-09] MEDS: SODIUM CHLORIDE 0.9% 10ML SYR (RAD ONLY) 10 ML IV (11:58)
[2025-04-09] MEDS: 0.9 % SODIUM CHLORIDE 50 ML VIAL IV (11:58)
[2025-04-09] MEDS: IOPAMIDOL-370 (76%);100ML BOTTLE 85 ML IV (11:58)
== END 2025-04-09 23:59 | disposition home or self-care (01) ==
PROVIDERS: Internal Medicine; PCP Emergency Medicine; Visit Provider Internal Medicine
DX: R07.2 Precordial pain (principal)
CPT/HCPCS: 75574; 80048; Q9967